=== PATIENT | male | born 1985 | race Hispanic/Latino ===

== ENCOUNTER → 2023-07-05 10:25 | Outpatient (CLI) | payer OTHER, SELFPAY ==
[2023-07-05 19:51] LABS: Add Manual Diff / Slide Review NO; Alanine Aminotransferase 25 IU/L (<50); Albumin 4.7 g/dL (3.5-5.0); Albumin Globulin Ratio 1.5 (1.0-2.8); Alkaline Phosphatase 52 U/L (38-126); Aspartate Aminotransferase 27 IU/L (17-59); BUN Creatinine Ratio 16.9 (6-22); Basophils Absolute Auto 0 /uL (0-100); Basophils Percent Auto 0.4 % (0-2); Bilirubin Total 0.6 mg/dL (0.2-1.3); Blood Urea Nitrogen 13 mg/dL (9-20); Calcium 9.9 mg/dL (8.4-10.2); Carbon Dioxide 30 mmol/L (22-32); Chloride 100 mmol/L (98-107); Cholesterol 210 mg/dL (140-199); Eosinophils Absolute Auto 200 /uL (0-450); Eosinophils Percent Auto 3.8 % (2-4); Estimated Glomerular Filt Rate > 60 mL/min (>60); Globulin 3.1 g/dL (1.7-4.1); Glucose 98 mg/dL (70-100); HDL Cholesterol 62 mg/dL (40-60); HEMOLYSIS < 15 (0-50); Hematocrit 40.9 % (41-53); LDL Cholesterol Calculated 135 mg/dL (<100); Lymphocytes Absolute Auto 1400 /uL (1100-4500); Lymphocytes Percent Auto 35.6 % (25-40); Mean Corpuscular HGB Conc 34.2 % (30-36); Mean Corpuscular Hemoglobin 29.5 PG (26-34); Monocytes Absolute Auto 400 /uL (0-900); Monocytes Percent Auto 9.4 % (3-14); Neutrophils Absolute Auto 2100 /uL (1500-7000); Neutrophils Percent Auto 50.8 % (50-75); Platelet Count 285 X10^3/uL (150-400); Potassium 4.8 mmol/L (3.4-5.1); Red Blood Cell Count 4.76 X10^6/uL (4.5-5.9); Red Cell Distribution Width 13.6 % (11.6-14.8); Sodium 136 mmol/L (137-145); Total Protein 7.8 g/dL (6.3-8.2); Triglycerides 66 mg/dL (35-150); White Blood Cell Count 4.1 X10^3/uL (4.5-11.0)
[2023-07-05 20:16] LABS: TSH w/ Reflex to FT4 3.89 uIU/mL (0.47-4.68)
== END ==
PROVIDERS: PCP Physician Assistant; Visit Provider Physician Assistant
DX: I67.1 Cerebral aneurysm, nonruptured (principal); Z13.6 Encounter for screening for cardiovascular disorders; F41.9 Anxiety disorder, unspecified
CPT/HCPCS: 80053; 80061; 84443; 85025

== ENCOUNTER → 2024-03-23 11:50 | Outpatient (CLI) | payer OTHER, SELFPAY ==
[2024-03-24 01:52] LABS: Free T4, Direct Thyroxine 1.64 ng/dL (0.78-2.19)
[2024-03-24 02:06] LABS: Thyroid Stimulating Hormone 2.15 uIU/mL (0.47-4.68)
[2024-03-24 03:14] LABS: Hemoglobin A1C% w Est Avg Glu 5.6 % (4.0-6.0)
== END ==
PROVIDERS: PCP Physician Assistant
DX: R53.82 Chronic fatigue, unspecified (principal); F63.3 Trichotillomania; F41.9 Anxiety disorder, unspecified
CPT/HCPCS: 82642; 83036; 84402; 84403; 84439; 84443; 84481; 84482; 86376; 86800